=== PATIENT | female | born 1990 | race African-American/Black ===

== ENCOUNTER 2017-07-25 22:11 | Emergency (ER) | payer SELFPAY ==
[~2017-07-25] VITALS: Ht 157.5 cm; Wt 59.0 kg
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
--- NOTE | 2017-07-25 22:20 | NUR ---
Patient to [facility] for evaluation. Side rails up. Report given to SHELL HIGH.
[2017-07-25 22:32] VITALS: BP_SYST 135
--- NOTE | 2017-07-25 22:45 | NUR ---
ER MD HUA AT BEDSIDE EXAMINING PATIENT.
[2017-07-25 22:47] LABS: BILIRUBIN,URINE NEGATIVE (NEGATIVE); BLOOD, URINE NEGATIVE (NEGATIVE); CLARITY/URINE CLEAR (CLEAR); COLOR,URINE YELLOW (YELLOW); GLUCOSE,URINE NEGATIVE (NEGATIVE); KETONES,URINE TRACE (NEGATIVE); LEUKOCYTE ESTERASE ,URINE NEGATIVE (NEGATIVE); NITRITE, URINE NEGATIVE (NEGATIVE); PROTEIN URINE NEGATIVE (NEGATIVE); UROBILINOGEN,URINE 0.2 (0.2-1.0)
[2017-07-25] MEDS: KETOROLAC TROMETHAMINE 60 MG/2 ML VIAL IM ONE (23:29)
[2017-07-25 23:35] VITALS: BP_SYST 110
--- NOTE | 2017-07-25 23:35 | NUR ---
Patient given written and verbal discharge instructions and verbalizes understanding. ER MD HUA discussed with patient the results and treatment provided. Patient in stable condition. ID arm band removed. Rx of Tylenol and Flexeril given. Patient educated on pain management and to follow up with PMD. Pain Scale 2/10. Opportunity for questions provided and answered.
== END 2017-07-25 23:35 | disposition home or self-care (01) ==
LOC: SED 22:11
DX: S16.1XXA Strain of muscle, fascia and tendon at neck level, initial encounter (principal); V89.2XXA Person injured in unspecified motor-vehicle accident, traffic, initial encounter; Y93.89 Activity, other specified; Y92.410 Unspecified street and highway as the place of occurrence of the external cause; Y99.8 Other external cause status
CPT/HCPCS: 72040; 81003; 81025; 96372; 99285; J1885

== ENCOUNTER 2019-12-25 20:55 | Emergency (ER) | payer MEDICAID, OTHER ==
[~2019-12-25] VITALS: Ht 162.6 cm; Wt 69.9 kg
[2019-12-25 21:20] VITALS: BP_SYST 114
--- NOTE | 2019-12-25 21:20 | NUR ---
Patient to ER bed 03 to gown for evaluation. Side rails up. Report given to SHELL Breaux.
--- NOTE | 2019-12-25 21:40 | NUR ---
RECEIVED AND IN ROOM, PT HERE FOR LACERATION LT ANKLE. SITE CLEANED, BLEEDING CONTROLLED. NO DISTRESS
--- NOTE | 2019-12-25 22:35 | NUR ---
DR JO AT BEDSIDE TO ASSESS
--- NOTE | 2019-12-25 22:42 | NUR ---
SUTURE REPAIR IN PROGRESS
[2019-12-25] MEDS ORDERED: DIPH-TET-PERTUS Vaccine 0.5 ML VIAL (ADACEL) I.M. ONE (22:45)
[2019-12-25] MEDS ORDERED: IBUPROFEN 800 MG TABLET PO ONE (22:45)
[2019-12-25] MEDS ORDERED: LIDOCAINE 1% 10 MG/ML, 20 ML MDV INJ ONE (22:45)
--- NOTE | 2019-12-25 23:11 | NUR ---
TOLERATING SUTURES WELL. JANOO AT BEDSIDE
[2019-12-25 23:36] VITALS: BP_SYST 118
--- NOTE | 2019-12-25 23:36 | NUR ---
Patient given written and verbal discharge instructions and verbalizes understanding. ER MD discussed with patient the results and treatment provided. Patient in stable condition. ID arm band removed. Rx of Augmentin given. Patient educated on pain management and to follow up with PMD. Pain Scale 0/10. Opportunity for questions provided and answered. Medication side effect fact sheet provided.
[2019-12-25] MEDS ORDERED: BACITRACIN 1 GM OINT TP ONE (23:46)
== END 2019-12-25 23:36 | disposition home or self-care (01) ==
LOC: SED 20:55
DX: S91.012A Laceration without foreign body, left ankle, initial encounter (principal); X58.XXXA Exposure to other specified factors, initial encounter; Y93.89 Activity, other specified; Y92.89 Other specified places as the place of occurrence of the external cause; Y99.8 Other external cause status
CPT/HCPCS: 12002; 90471; 90715; 99283; J2001